=== PATIENT | male | born 1955 | race African-American/Black ===

== ENCOUNTER 2018-02-20 17:13 | Emergency (ER) | payer MEDICAID ==
[~2018-02-20] VITALS: Ht 182.9 cm; Wt 82.0 kg
[2018-02-20 19:28] LABS: BASOPHILS % 0.9 % (0.0-2.0); CHLORIDE 106 mEq/L (98-107); EOSINOPHILS % 1.7 % (0.0-5.0); HEMATOCRIT. 41.7 % (42.0-52.0); HEMOGLOBIN. 14.2 g/dL (14.0-18.0); LYMPHOCYTES % 33.5 % (20.0-50.0); MEAN CORPUSCULAR HEMOGLOBIN 29.4 pg (28.0-32.0); MEAN CORPUSCULAR VOLUME 86.2 fL (80.0-94.0); MEAN PLATELET VOLUME 8.5 fl (7.4-10.4); MONOCYTES % 8.8 % (2.0-8.0); NEUTROPHILS % 55.1 % (40.0-76.0); PLATELET 214 x1000/uL (130-400); RED BLOOD CELL COUNT 4.84 mill/uL (4.7-6.1); RED CELL DISTRIBUTION WIDTH 14.6 % (11.6-14.6)
[2018-02-20 19:31] LABS: PARTIAL THROMBOPLASTIN TIME 23.3 sec (23.4-31.0); PROTHROMBIN TIME 10.3 sec (9.4-11.6)
[2018-02-20] MEDS ORDERED: MAGNESIUM/ALUMINUM HYDROXIDE/SIMETHICONE 30ML UDC PO STA (23:48)
[2018-02-20] MEDS ORDERED: VISCOUS LIDOCAINE 2% 15 ML UDC PO STA (23:48)
[2018-02-20] MEDS ORDERED: ACETAMINOPHEN 325MG TABLET PO STA (23:48)
[2018-02-21 00:58] VITALS: BP 165/95
== END 2018-02-21 00:59 | disposition home or self-care (01) ==
LOC: ER 21:26
DX: R06.6 Hiccough (principal); R10.9 Unspecified abdominal pain; I10 Essential (primary) hypertension; F17.200 Nicotine dependence, unspecified, uncomplicated; Z98.890 Other specified postprocedural states
CPT/HCPCS: 36415; 71045; 74176; 80053; 83690; 84484; 85025; 85610; 85730; 93005; 99285

== ENCOUNTER 2018-08-03 16:41 | Emergency (ER) | payer MEDICAID, MEDICARE ==
[~2018-08-03] VITALS: Ht 177.8 cm; Wt 88.4 kg
[2018-08-03 17:32] VITALS: BP 146/101
[2018-08-05] MEDS ORDERED: GABA-531 MT (14:27)
[2018-08-05] MEDS ORDERED: LISI10TA5 MT (14:27)
[2018-08-05] MEDS ORDERED: RANI150T7 MT (14:27)
[2018-08-05] MEDS ORDERED: HYOS-14 MT (14:27)
[2018-08-05] MEDS ORDERED: ATOR10TA69 MT (14:27)
[2018-08-05] MEDS ORDERED: PANT40TA4 MT (14:27)
== END 2018-08-03 19:15 | disposition left against medical advice (07) ==
LOC: ER 16:41
DX: Z53.21 Procedure and treatment not carried out due to patient leaving prior to being seen by health care provider (principal)
CPT/HCPCS: 82962

== ENCOUNTER 2018-09-21 11:33 | Emergency (ER) | payer MEDICARE ==
[~2018-09-21] VITALS: Ht 182.9 cm; Wt 93.0 kg
[~2018-09-21 11:33] MED LIST: ATOR10TA69 MT; GABA-531 MT; HYOS-14 MT; LISI10TA5 MT; PANT40TA4 MT; RANI150T7 MT
[2018-09-21] MEDS ORDERED: SODIUM CHLORIDE 0.9% 1000ML BAG (SEPSIS BOLUS) IV ONE (13:00)
[2018-09-21] MEDS ORDERED: ACETAMINOPHEN 325MG TABLET PO ONE (13:15)
[2018-09-21 13:22] LABS: HEMATOCRIT. 40.2 % (42.0-52.0); HEMOGLOBIN. 13.2 g/dL (14.0-18.0); MEAN CORPUSCULAR HEMOGLOBIN 28.3 pg (28.0-32.0); MEAN CORPUSCULAR VOLUME 86.4 fL (80.0-94.0); MEAN PLATELET VOLUME 8.3 fl (7.4-10.4); PLATELET 215 x1000/uL (130-400); RED BLOOD CELL COUNT 4.66 mill/uL (4.7-6.1); RED CELL DISTRIBUTION WIDTH 14.5 % (11.6-14.6)
[2018-09-21 13:30] LABS: CHLORIDE 105 mEq/L (98-107)
[2018-09-21 13:31] LABS: PROTHROMBIN TIME 10.5 sec (9.1-11.1)
[2018-09-21 13:48] LABS: PLATELET ESTIMATE NORMAL
[2018-09-21] MEDS ORDERED: IPRATROPIUM/ALBUTEROL 0.5-3(2.5)MG/3ML NEB HHN NR (15:15)
[2018-09-21] MEDS ORDERED: IPRATROPIUM/ALBUTEROL 0.5-3(2.5)MG/3ML NEB HHN SCH (16:00)
[2018-09-21] MEDS ORDERED: PANTOPRAZOLE SODIUM 40 MG/VIAL IV SCH (16:30)
[2018-09-21] MEDS ORDERED: DEXTROSE 50% WATER 50ML SYRINGE IV PRN (16:30)
[2018-09-21 16:49] LABS: CLARITY URINE CLEAR (CLEAR); COLOR URINE YELLOW (YELLOW); KETONES URINE NEGATIVE (NEGATIVE); LEUKOCYTE ESTERASE URINE NEGATIVE (NEGATIVE); NITRITE URINE NEGATIVE (NEGATIVE); OCCULT BLOOD URINE NEGATIVE (NEGATIVE); PROTEIN URINE NEGATIVE (NEGATIVE)
[2018-09-21] MEDS ORDERED: BLOOD SUGAR DIAGNOSTIC STRIP TEST SCH (17:00)
[2018-09-21] MEDS ORDERED: PIPERACILLIN/TAZOBACTAM 3.375GM/50ML PREMIX IV ONE (17:00)
[2018-09-21] MEDS ORDERED: PIPERACILLIN/TAZ 3.375G PREMIX 50 ML IV NR (17:00)
[2018-09-21] MEDS ORDERED: VANCOMYCIN 1 G PREMIX 200 ML IV SCH (17:00)
[2018-09-21] MEDS ORDERED: INSULIN LISPRO 100 UNITS/ML SUBCUT SCH (18:20)
[2018-09-21 18:58] VITALS: BP 154/110
[2018-09-21] MEDS ORDERED: PIPERACILLIN/TAZ 2.25G PREMIX 50 ML IV SCH (22:00)
== END 2018-09-21 19:18 | disposition short-term general hospital (02) ==
LOC: ER 11:33 → CANBEDREQ 20:12
DX: N17.9 Acute kidney failure, unspecified (principal); R53.1 Weakness; I10 Essential (primary) hypertension; E11.9 Type 2 diabetes mellitus without complications; E78.00 Pure hypercholesterolemia, unspecified; D72.829 Elevated white blood cell count, unspecified; R94.31 Abnormal electrocardiogram [ECG] [EKG]; Z87.19 Personal history of other diseases of the digestive system; Z86.73 Personal history of transient ischemic attack (TIA), and cerebral infarction without residual deficits; Z90.5 Acquired absence of kidney; W06.XXXA Fall from bed, initial encounter; Y93.89 Activity, other specified; Y92.013 Bedroom of single-family (private) house as the place of occurrence of the external cause
CPT/HCPCS: 36415; 71045; 74176; 80053; 81003; 83605; 84145; 84484; 85025; 85610; 87040; 87086; 87804; 93005; 96365; 96367; 99285; J2543; J3370; J7030; Z7610

== ENCOUNTER 2018-11-16 13:35 | Inpatient (IN) | payer MEDICARE ==
[~2018-11-16] VITALS: Ht 182.9 cm; Wt 90.0 kg
[2018-11-16] MEDS ORDERED: MAGNESIUM/ALUMINUM HYDROXIDE/SIMETHICONE 30ML UDC PO ONE (14:30)
[2018-11-16] MEDS ORDERED: NITROGLYCERIN 0.4MG TABLET SL SL PRN (14:30)
[2018-11-16] MEDS ORDERED: PANTOPRAZOLE SODIUM 40 MG/VIAL IV ONE (14:30)
[2018-11-16] MEDS ORDERED: ASPIRIN 81MG TABLET PO ONE (14:30)
[2018-11-16 15:01] LABS: EOSINOPHILS % 2.5 % (0.0-5.0); HEMATOCRIT. 42.1 % (42.0-52.0); HEMOGLOBIN. 14.1 g/dL (14.0-18.0); LYMPHOCYTES % 29.3 % (20.0-50.0); MEAN CORPUSCULAR HEMOGLOBIN 28.7 pg (28.0-32.0); MEAN CORPUSCULAR VOLUME 85.9 fL (80.0-94.0); MONOCYTES % 8.2 % (2.0-8.0); PLATELET 286 x1000/uL (130-400); RED CELL DISTRIBUTION WIDTH 15.2 % (11.6-14.6)
[2018-11-16 15:08] LABS: CHLORIDE 107 mEq/L (98-107)
[2018-11-16] MEDS ORDERED: HYDROCODONE/ACETAMINOPHEN 5/325MG TABLET PO PRN (18:00)
[2018-11-16] MEDS ORDERED: DIPHENHYDRAMINE 50MG/ML VIAL IV PRN (18:00)
[2018-11-16] MEDS ORDERED: ACETAMINOPHEN 650MG SUPP PR PRN (18:00)
[2018-11-16] MEDS ORDERED: DEXTROSE 50% WATER 50ML SYRINGE IV PRN (18:00)
[2018-11-16] MEDS ORDERED: NA PHOS,M-B/NA PHOS,DI-BA ENEMA 118ML PR PRN (18:00)
[2018-11-16] MEDS ORDERED: ACETAMINOPHEN 325MG TABLET PO PRN (18:00)
[2018-11-16] MEDS ORDERED: MAGNESIUM/ALUMINUM HYDROXIDE/SIMETHICONE 30ML UDC PO PRN (18:00)
[2018-11-16] MEDS ORDERED: CLONIDINE 0.1MG TABLET PO PRN (18:00)
[2018-11-16] MEDS ORDERED: GUAIFENESIN 200MG/10ML SUGAR FREE UDC PO PRN (18:00)
[2018-11-16] MEDS ORDERED: IPRATROPIUM/ALBUTEROL 0.5-3(2.5)MG/3ML NEB INH PRN (18:00)
[2018-11-16] MEDS ORDERED: ONDANSETRON HCL 4MG/2ML INJ IV PRN (18:00)
[2018-11-16] MEDS ORDERED: PANTOPRAZOLE SODIUM 40 MG/VIAL IV SCH (18:00)
[2018-11-16] MEDS ORDERED: LORAZEPAM 0.5MG TABLET PO PRN (18:00)
[2018-11-16] MEDS ORDERED: DOCUSATE SODIUM 100MG CAPSULE PO PRN (18:00)
[2018-11-16] MEDS ORDERED: INSULIN LISPRO 100 UNITS/ML SUBCUT SCH (18:20)
[2018-11-16 19:17] LABS: PROTHROMBIN TIME 9.6 sec (9.1-11.1)
[2018-11-16 23:00] VITALS: BP 172/99
[2018-11-16 23:30] VITALS: BP 172/99
[2018-11-17] MEDS ORDERED: METO-539 MT (00:52)
[2018-11-17] MEDS ORDERED: LOSA50TA20 MT (00:54)
[2018-11-17] MEDS ORDERED: OMEP20CA10 MT (00:55)
[2018-11-17 04:00] VITALS: BP 123/84
[2018-11-17] MEDS ORDERED: REGADENOSON 0.4 MG/5 ML IV NR (05:45)
[2018-11-17] MEDS: CLONIDINE 0.1MG TABLET PO NR ×2 (05:53→06:00)
[2018-11-17 06:42] LABS: BASOPHILS % 0.6 % (0.0-2.0); EOSINOPHILS % 1.6 % (0.0-5.0); HEMATOCRIT. 37.6 % (42.0-52.0); HEMOGLOBIN. 12.4 g/dL (14.0-18.0); LYMPHOCYTES % 24.1 % (20.0-50.0); MEAN CORPUSCULAR HEMOGLOBIN 28.4 pg (28.0-32.0); MEAN CORPUSCULAR VOLUME 86.1 fL (80.0-94.0); MEAN PLATELET VOLUME 8.3 fl (7.4-10.4); MONOCYTES % 7.3 % (2.0-8.0); NEUTROPHILS % 66.4 % (40.0-76.0); PLATELET 245 x1000/uL (130-400); RED BLOOD CELL COUNT 4.36 mill/uL (4.7-6.1); RED CELL DISTRIBUTION WIDTH 15.1 % (11.6-14.6)
[2018-11-17 06:51] LABS: CHLORIDE 107 mEq/L (98-107)
[2018-11-17 06:59] LABS: LDL CHOLESTEROL 97 mg/dL (5-100)
[2018-11-17 07:00] LABS: CREATINE KINASE 61 IU/L (39-308); CREATINE KINASE MB FRACTION < 1.0 ng/mL (0.5-3.6); T4 FREE 1.09 ng/dL (0.76-1.46)
[2018-11-17 07:03] LABS: HDL CHOLESTEROL 81 mg/dL (40-59)
[2018-11-17] MEDS: BLOOD SUGAR DIAGNOSTIC STRIP TEST SCH ×2 (07:10→12:11)
[2018-11-17] MEDS: INSULIN LISPRO 100 UNITS/ML SUBCUT SCH ×2 (07:40→12:12)
[2018-11-17 08:00] VITALS: BP 128/89
[2018-11-17] MEDS ORDERED: HEPARIN 5000 UNITS/ML VIAL SUBCUT SCH (09:00)
[2018-11-17] MEDS ORDERED: AMLODIPINE 5MG TABLET PO SCH (09:00)
[2018-11-17] MEDS ORDERED: PANTOPRAZOLE SODIUM 40 MG/VIAL IV SCH (09:00)
[2018-11-17] MEDS ORDERED: ASPIRIN 81MG EC TABLET PO SCH (09:00)
[2018-11-17] MEDS ORDERED: REGADENOSON 0.4 MG/5 ML IV ONE (09:02)
[2018-11-17 12:00] VITALS: BP 126/78
[2018-11-17] MEDS ORDERED: CLONIDINE 0.1MG TABLET PO SCH (14:00)
[2018-11-17 14:13] VITALS: BP 125/78
== END 2018-11-17 15:55 | disposition home or self-care (01) | DRG 243 ==
LOC: ER 13:35 → 8WST 15:54 → EDBEDREQTM 15:58 → EDBEDREQ 15:58 → ENRESERV 21:41
PROVIDERS: ADMIT Internal Medicine; ATTEND Internal Medicine
DX: K21.0 Gastro-esophageal reflux disease with esophagitis (principal); E11.22 Type 2 diabetes mellitus with diabetic chronic kidney disease; I13.10 Hypertensive heart and chronic kidney disease without heart failure, with stage 1 through stage 4 chronic kidney disease, or unspecified chronic kidney disease; E78.5 Hyperlipidemia, unspecified; M19.90 Unspecified osteoarthritis, unspecified site; K57.90 Diverticulosis of intestine, part unspecified, without perforation or abscess without bleeding; N40.0 Benign prostatic hyperplasia without lower urinary tract symptoms; N18.9 Chronic kidney disease, unspecified; Z88.9 Allergy status to unspecified drugs, medicaments and biological substances; Z87.891 Personal history of nicotine dependence; Z86.73 Personal history of transient ischemic attack (TIA), and cerebral infarction without residual deficits; Z90.5 Acquired absence of kidney; Z79.84 Long term (current) use of oral hypoglycemic drugs
CPT/HCPCS: 36415; 71045; 78452; 80061; 82550; 82553; 82962; 83036; 83880; 84153; 84439; 84443; 84484; 93005; 93017; 93306; 93970; 96374; 97162; 99285; A9500; C9113; J1644; J2785; G0103

== ENCOUNTER 2019-06-12 13:57 | Inpatient (IN) | payer MEDICARE ==
[~2019-06-12] VITALS: Ht 182.9 cm; Wt 90.7 kg
[~2019-06-12 13:57] MED LIST changes: +LOSA50TA41 MT; +METO-539 MT; +OMEP20CA5 MT
[2019-06-12] MEDS ORDERED: SODIUM CHLORIDE 0.9% 1,000 ML IV ONE (14:18)
[2019-06-12] MEDS ORDERED: MORPHINE SULFATE 4 MG/ML CPJ (NOT FOR IM USE) IV STA (14:18)
[2019-06-12] MEDS ORDERED: ONDANSETRON HCL 4MG/2ML INJ IV STA (14:18)
[2019-06-12 15:00] LABS: BASOPHILS % 0.8 % (0.0-2.0); EOSINOPHILS % 3.3 % (0.0-5.0); HEMATOCRIT. 41.6 % (42.0-52.0); HEMOGLOBIN. 13.9 g/dL (14.0-18.0); LYMPHOCYTES % 32.1 % (20.0-50.0); MEAN CORPUSCULAR HEMOGLOBIN 27.9 pg (28.0-32.0); MEAN CORPUSCULAR VOLUME 83.6 fL (80.0-94.0); MEAN PLATELET VOLUME 8.6 fl (7.4-10.4); MONOCYTES % 8.1 % (2.0-8.0); NEUTROPHILS % 55.7 % (40.0-76.0); PLATELET 249 x1000/uL (130-400); RED BLOOD CELL COUNT 4.98 mill/uL (4.7-6.1); RED CELL DISTRIBUTION WIDTH 16.4 % (11.6-14.6)
[2019-06-12 15:01] LABS: PROTHROMBIN TIME 10.3 sec (9.6-11.0)
[2019-06-12 15:03] LABS: CHLORIDE 109 mEq/L (98-107)
[2019-06-12] MEDS ORDERED: ASPIRIN 81MG TABLET PO ONE (17:15)
[2019-06-12] MEDS ORDERED: CLONIDINE 0.1MG TABLET PO ONE (21:00)
[2019-06-13 00:48] VITALS: BP 157/92
[2019-06-13] MEDS ORDERED: CLONIDINE 0.1MG TABLET PO PRN (02:45)
[2019-06-13] MEDS ORDERED: ACETAMINOPHEN 650MG/20.3ML UDC PO PRN (02:45)
[2019-06-13 04:00] VITALS: BP 136/94
[2019-06-13] MEDS ORDERED: PANTOPRAZOLE 40MG DR TABLET PO SCH (07:20)
[2019-06-13 08:00] VITALS: BP 133/78
[2019-06-13 09:23] LABS: CREATINE KINASE 76 IU/L (39-308); CREATINE KINASE MB FRACTION < 1.0 ng/mL (0.5-3.6)
[2019-06-13] MEDS: ASPIRIN 81MG TABLET PO SCH (09:30)
[2019-06-13] MEDS: METOPROLOL TARTRATE 50MG TABLET PO SCH ×2 (09:30→22:31)
[2019-06-13] MEDS: ENOXAPARIN 40MG/0.4ML SYR SUBCUT SCH (09:31)
[2019-06-13 12:00] VITALS: BP 142/65
[2019-06-13 13:32] LABS: BASOPHILS % 0.8 % (0.0-2.0); EOSINOPHILS % 3.3 % (0.0-5.0); HEMATOCRIT. 35.7 % (42.0-52.0); HEMOGLOBIN. 11.8 g/dL (14.0-18.0); LYMPHOCYTES % 35.2 % (20.0-50.0); MEAN CORPUSCULAR HEMOGLOBIN 27.7 pg (28.0-32.0); MEAN CORPUSCULAR VOLUME 83.9 fL (80.0-94.0); MEAN PLATELET VOLUME 8.4 fl (7.4-10.4); MONOCYTES % 8.7 % (2.0-8.0); PLATELET 219 x1000/uL (130-400); RED BLOOD CELL COUNT 4.25 mill/uL (4.7-6.1); RED CELL DISTRIBUTION WIDTH 16.5 % (11.6-14.6)
[2019-06-13 13:48] LABS: CHLORIDE 109 mEq/L (98-107)
[2019-06-13 14:34] LABS: CREATINE KINASE 81 IU/L (39-308)
[2019-06-13 14:35] LABS: CREATINE KINASE MB FRACTION < 1.0 ng/mL (0.5-3.6)
[2019-06-13 16:00] VITALS: BP 114/68
[2019-06-13] MEDS ORDERED: MORPHINE SULFATE 2 MG/ML CPJ (NOT FOR IM USE) IV PRN (16:30)
[2019-06-13] MEDS ORDERED: DIPHENHYDRAMINE 50MG/ML VIAL IV PRN (16:30)
[2019-06-13] MEDS ORDERED: ONDANSETRON HCL 4MG/2ML INJ IV PRN (16:30)
[2019-06-13] MEDS ORDERED: HYDRALAZINE 20MG/ML VIAL IV PRN (16:30)
[2019-06-13] MEDS ORDERED: DEXTROSE 50% WATER 50ML SYRINGE IV PRN (16:30)
[2019-06-13] MEDS ORDERED: BISACODYL 10MG SUPP PR PRN (16:30)
[2019-06-13] MEDS: DEXT 5%/0.45% NACL 1000ML 1,000 ML IV SCH (16:30)
[2019-06-13] MEDS ORDERED: LORAZEPAM 2MG/ML CPJ IV PRN (16:30)
[2019-06-13] MEDS ORDERED: IPRATROPIUM/ALBUTEROL 0.5-3(2.5)MG/3ML NEB HHN PRN (16:30)
[2019-06-13] MEDS: BLOOD SUGAR DIAGNOSTIC STRIP TEST SCH ×2 (17:25→22:37)
[2019-06-13] MEDS: GABAPENTIN 300MG CAPSULE PO SCH (17:25)
[2019-06-13] MEDS: PANTOPRAZOLE SODIUM 40 MG/VIAL IV SCH (17:25)
[2019-06-13] MEDS: INSULIN LISPRO 100 UNITS/ML SUBCUT SCH ×2 (17:43→22:37)
[2019-06-13 20:00] VITALS: BP 133/77
[2019-06-14] VITALS (13 sets, daily range): BP systolic 101–152; BP diastolic 44–98
[2019-06-14 00:09] LABS: CREATINE KINASE 79 IU/L (39-308)
[2019-06-14 00:10] LABS: CREATINE KINASE MB FRACTION 1.1 ng/mL (0.5-3.6)
[2019-06-14 05:58] LABS: CLARITY URINE CLOUDY (CLEAR); COLOR URINE YELLOW (YELLOW); KETONES URINE NEGATIVE (NEGATIVE); LEUKOCYTE ESTERASE URINE NEGATIVE (NEGATIVE); NITRITE URINE NEGATIVE (NEGATIVE); OCCULT BLOOD URINE NEGATIVE (NEGATIVE); PROTEIN URINE NEGATIVE (NEGATIVE); UROBILINOGEN URINE 0.2 E.U./dL (0.2-1.0)
[2019-06-14 06:15] LABS: *AMPHETAMINES SCREEN URINE NEGATIVE (NEGATIVE); *BARBITURATES SCREEN URINE NEGATIVE (NEGATIVE); *BENZODIAZEPINES SCREEN URINE NEGATIVE (NEGATIVE); *COCAINE SCREEN URINE NEGATIVE (NEGATIVE); METHADONE URINE SCREEN NEGATIVE (NEGATIVE)
[2019-06-14 06:16] LABS: OPIATES URINE SCREEN PRESUMTIVE POSITIVE (NEGATIVE); PHENCYCLIDINE URINE SCREEN NEGATIVE (NEGATIVE)
[2019-06-14 06:20] LABS: CANNABINOID URINE SCREEN NEGATIVE (NEGATIVE)
[2019-06-14 06:59] LABS: HEMATOCRIT 34.7 % (42.0-52.0); HEMOGLOBIN 11.5 g/dL (14.0-18.0); MEAN CORPUSCULAR HEMOGLOBIN 27.8 pg (28.0-32.0); MEAN CORPUSCULAR VOLUME 83.8 fL (80.0-94.0); PLATELET 217 x1000/uL (130-400); RED BLOOD CELL COUNT 4.15 mill/uL (4.7-6.1); RED CELL DISTRIBUTION WIDTH 16.5 % (11.6-14.6)
[2019-06-14 07:09] LABS: CHLORIDE 109 mEq/L (98-107)
[2019-06-14] MEDS: BLOOD SUGAR DIAGNOSTIC STRIP TEST SCH ×4 (07:24→21:00)
[2019-06-14] MEDS: INSULIN LISPRO 100 UNITS/ML SUBCUT SCH ×4 (07:25→21:00)
[2019-06-14] MEDS ORDERED: LISINOPRIL 10MG TABLET PO SCH (09:00)
[2019-06-14] MEDS ORDERED: ATORVASTATIN CALCIUM 10MG TABLET PO SCH (09:00)
[2019-06-14] MEDS: DEXT 5%/0.45% NACL 1000ML 1,000 ML IV SCH (09:10)
[2019-06-14] MEDS: ENOXAPARIN 40MG/0.4ML SYR SUBCUT SCH (09:23)
[2019-06-14] MEDS: METOPROLOL TARTRATE 50MG TABLET PO SCH ×2 (09:24→22:00)
[2019-06-14] MEDS: PANTOPRAZOLE SODIUM 40 MG/VIAL IV SCH ×2 (09:24→17:53)
[2019-06-14] MEDS: GABAPENTIN 300MG CAPSULE PO SCH ×3 (09:24→17:53)
[2019-06-14] MEDS: ASPIRIN 81MG TABLET PO SCH (09:24)
[2019-06-14] MEDS: LOSARTAN POTASSIUM 50 MG TABLET PO SCH (09:24)
[2019-06-14] MEDS ORDERED: IODIXANOL 320MG/ML 100 ML BOTTLE IV ONE ×2 (13:31→15:07)
[2019-06-14] MEDS ORDERED: LIDOCAINE HCL 1% 20ML VIAL (Pyxis) INJ ONE (13:31)
[2019-06-14] MEDS ORDERED: ATROPINE SULFATE 0.1MG/ML 10ML DISP.SYRIN ONE (13:50)
[2019-06-14] MEDS ORDERED: MIDAZOLAM HCL 2 MG/2 ML VIAL ONE (14:23)
[2019-06-14] MEDS ORDERED: FENTANYL CITRATE/PF 50MCG/ML 2ML VIAL ONE (14:23)
[2019-06-14] MEDS ORDERED: HEPARIN SODIUM 1,000 UNIT/1ML VIAL IV ONE (14:38)
[2019-06-14] MEDS ORDERED: NITROGLYCERIN 50MCG/ML 10ML VIAL (CATH LAB) IV ONE (14:38)
[2019-06-14] MEDS ORDERED: PHENYLEPHRINE 100MCG/ML 10ML VIAL (CATH LAB) IV ONE (14:38)
[2019-06-14] MEDS ORDERED: NICARDIPINE 100MCG/ML 10ML VIAL (CATH LAB) IV ONE (14:38)
[2019-06-14] MEDS ORDERED: IOHEXOL-300 100 ML BOTTLE ONE (14:42)
[2019-06-14] MEDS ORDERED: SODIUM CHLORIDE 0.45% 1,000 ML IV ONE (15:30)
[2019-06-14] MEDS ORDERED: ATROPINE SULFATE 1MG/10ML SYR IV PRN (15:30)
[2019-06-14] MEDS ORDERED: ASPI-1393 MT (16:16)
[2019-06-14] MEDS ORDERED: CLOP75TA4 MT (16:16)
[2019-06-14] MEDS ORDERED: LIP40 MT (16:16)
[2019-06-14] MEDS: CLOPIDOGREL 75MG TABLET PO SCH (17:53)
[2019-06-15] VITALS (8 sets, daily range): BP systolic 118–154; BP diastolic 62–116
[2019-06-15] MEDS: DEXT 5%/0.45% NACL 1000ML 1,000 ML IV SCH (00:10)
[2019-06-15] MEDS: BLOOD SUGAR DIAGNOSTIC STRIP TEST SCH ×2 (06:49→11:50)
[2019-06-15] MEDS: INSULIN LISPRO 100 UNITS/ML SUBCUT SCH ×2 (06:49→12:20)
[2019-06-15 07:06] LABS: CHLORIDE 109 mEq/L (98-107)
[2019-06-15 07:14] LABS: BASOPHILS % 0.5 % (0.0-2.0); EOSINOPHILS % 3.6 % (0.0-5.0); HEMATOCRIT. 36.9 % (42.0-52.0); HEMOGLOBIN. 12.4 g/dL (14.0-18.0); LYMPHOCYTES % 35.1 % (20.0-50.0); MEAN CORPUSCULAR HEMOGLOBIN 28.3 pg (28.0-32.0); MEAN CORPUSCULAR VOLUME 84.2 fL (80.0-94.0); MEAN PLATELET VOLUME 8.8 fl (7.4-10.4); MONOCYTES % 8.9 % (2.0-8.0); NEUTROPHILS % 51.9 % (40.0-76.0); PLATELET 215 x1000/uL (130-400); RED BLOOD CELL COUNT 4.39 mill/uL (4.7-6.1); RED CELL DISTRIBUTION WIDTH 16.2 % (11.6-14.6)
[2019-06-15] MEDS ORDERED: ATORVASTATIN CALCIUM 40MG TABLET PO SCH (09:00)
[2019-06-15] MEDS: PANTOPRAZOLE SODIUM 40 MG/VIAL IV SCH (09:15)
[2019-06-15] MEDS: ENOXAPARIN 40MG/0.4ML SYR SUBCUT SCH (09:15)
[2019-06-15] MEDS: ASPIRIN 81MG TABLET PO SCH (09:16)
[2019-06-15] MEDS: METOPROLOL TARTRATE 50MG TABLET PO SCH (09:16)
[2019-06-15] MEDS: GABAPENTIN 300MG CAPSULE PO SCH ×2 (09:16→13:39)
[2019-06-15] MEDS: CLOPIDOGREL 75MG TABLET PO SCH (09:16)
[2019-06-15] MEDS: LOSARTAN POTASSIUM 50 MG TABLET PO SCH (09:16)
[2019-06-15] MEDS ORDERED: ISOSORBIDE MONONITRATE 30MG TABLET SR 24HR PO SCH (14:45)
== END 2019-06-15 18:42 | disposition home or self-care (01) | DRG 191 ==
LOC: ER 13:57 → 6WST 17:41 → EDBEDREQ 22:19 → EDBEDREQTM 22:19 → ENRESERV 23:32 → 3WST 06-14 15:55
PROVIDERS: ADMIT Internal Medicine; ATTEND Internal Medicine
PROC: 4A023N7 Measurement of Cardiac Sampling and Pressure, Left Heart, Percutaneous Approach (ICD-10-PCS; principal; 2019-06-14)
PROC: B2111ZZ Fluoroscopy of Multiple Coronary Arteries using Low Osmolar Contrast (ICD-10-PCS; 2019-06-14)
PROC: B2151ZZ Fluoroscopy of Left Heart using Low Osmolar Contrast (ICD-10-PCS; 2019-06-14)
DX: I25.10 Atherosclerotic heart disease of native coronary artery without angina pectoris (principal); I50.33 Acute on chronic diastolic (congestive) heart failure; E11.22 Type 2 diabetes mellitus with diabetic chronic kidney disease; I25.82 Chronic total occlusion of coronary artery; K21.9 Gastro-esophageal reflux disease without esophagitis; D64.9 Anemia, unspecified; N18.3 Chronic kidney disease, stage 3 (moderate); I13.0 Hypertensive heart and chronic kidney disease with heart failure and stage 1 through stage 4 chronic kidney disease, or unspecified chronic kidney disease; E86.0 Dehydration; R07.89 Other chest pain; E78.5 Hyperlipidemia, unspecified; N40.0 Benign prostatic hyperplasia without lower urinary tract symptoms; K20.9 Esophagitis, unspecified; K57.90 Diverticulosis of intestine, part unspecified, without perforation or abscess without bleeding; D63.1 Anemia in chronic kidney disease; Z79.84 Long term (current) use of oral hypoglycemic drugs; Z90.5 Acquired absence of kidney; Z79.4 Long term (current) use of insulin; Z86.73 Personal history of transient ischemic attack (TIA), and cerebral infarction without residual deficits; Z87.891 Personal history of nicotine dependence
CPT/HCPCS: 36415; 71045; 74018; 80048; 80305; 81003; 82550; 82553; 82962; 83880; 84484; 85027; 85347; 93005; 93306; 93458; 99285; C1769; C1887; C1893; C9113; J0461; J1644; J1650; J2250; J2270; J2370; J2405; J3010; J3490; J7030; Q9967